=== PATIENT | male | born 1955 | race Two or more races ===

== ENCOUNTER 2021-01-04 22:31 | Emergency (ER) | payer MEDICARE, MEDICAID ==
[~2021-01-04] VITALS: Ht 172.7 cm; Wt 81.6 kg
[2021-01-04 22:34] VITALS: BP 174/101
[2021-01-04 23:13] LABS: Basophils # (auto) 0.1 10 ^3/uL (0-0.2); Basophils % (auto) 0.5 % (0.0-2.0); Eosinophils # (auto) 0.1 10 ^3/uL (0-0.8); Eosinophils % (auto) 0.8 % (0.0-7.0); Hematocrit 39.1 % (41.0-53.0); Lymphocytes # (auto) 1.5 10 ^3/uL (0.4-5.4); Lymphocytes % (auto) 12.3 % (10.0-50.0); Mean Corpuscular Hgb Conc. 33.3 g/dL (32.0-36.0); Mean Corpuscular Volume 81.1 fL (80.0-100.0); Neutrophils # (auto) 9.4 10 ^3/uL (1.6-8.6); Neutrophils % (auto) 78.4 % (37.0-80.0); Platelet Count (auto) 307 10^3/uL (140-450); Red Blood Cells 4.82 10^6/uL (4.5-5.90); Red Cell Distribution Width 15.7 % (11.8-14.3)
[2021-01-04 23:31] LABS: INR 1.03 (0.9-1.15); Partial Thromboplastin Time 26.8 sec (23.0-31.2)
[2021-01-04 23:32] LABS: Alanine Aminotransferase 21 U/L (16-61); Albumin 2.9 g/dL (3.4-5.0); Anion Gap 5 (5-15); Blood Urea Nitrogen 11 mg/dL (7-18); Calcium 8.9 mg/dL (8.5-10.1); Carbon Dioxide 28 mmol/L (21-32); Chloride 100 mmol/L (98-107); Glucose 112 mg/dL (74-106); Sodium 133 mmol/L (136-145)
[2021-01-04 23:37] LABS: Alkaline Phosphatase 110 U/L (45-117); Aspartate Aminotransferase 21 U/L (15-37); BUN/Creatinine Ratio 13.6; Bilirubin, Total 0.2 mg/dL (0.2-1.0); GFR African American 123 mL/min; GFR Non-African American 101 mL/min; Total Protein 9.4 g/dL (6.4-8.2)
== END 2021-01-05 01:41 | disposition left against medical advice (07) ==
LOC: ER 22:34
DX: L02.211 Cutaneous abscess of abdominal wall (principal); R79.89 Other specified abnormal findings of blood chemistry; J44.9 Chronic obstructive pulmonary disease, unspecified; I10 Essential (primary) hypertension; F17.210 Nicotine dependence, cigarettes, uncomplicated; F12.10 Cannabis abuse, uncomplicated; F15.10 Other stimulant abuse, uncomplicated; F19.10 Other psychoactive substance abuse, uncomplicated; Z86.73 Personal history of transient ischemic attack (TIA), and cerebral infarction without residual deficits
CPT/HCPCS: 36415; 80053; 83880; 84484; 85025; 85379; 85610; 85730; 93005

== ENCOUNTER 2021-01-13 10:48 | Emergency (ER) | payer MEDICARE, MEDICAID ==
[~2021-01-13] VITALS: Ht 170.2 cm; Wt 104.3 kg
[2021-01-13 13:20] LABS: Basophils # (auto) 0 10 ^3/uL (0-0.2); Basophils % (auto) 0.4 % (0.0-2.0); Eosinophils # (auto) 0.1 10 ^3/uL (0-0.8); Monocytes # (auto) 0.8 10 ^3/uL (0-1.3); Platelet Count (auto) 280 10^3/uL (140-450); White Blood Cell 11.5 10^3/uL (4.4-10.8)
[2021-01-13 13:22] LABS: Eosinophils % (auto) 0.7 % (0.0-7.0); Hemoglobin 11.8 g/dL (13.5-17.5); Lymphocytes # (auto) 1.4 10 ^3/uL (0.4-5.4); Lymphocytes % (auto) 11.8 % (10.0-50.0); Mean Corpuscular Hemoglobin 26.7 pg (28.0-32.0); Mean Corpuscular Hgb Conc. 32.8 g/dL (32.0-36.0); Mean Corpuscular Volume 81.4 fL (80.0-100.0); Monocytes % (auto) 6.5 % (0.0-12.0); Neutrophils # (auto) 9.3 10 ^3/uL (1.6-8.6); Neutrophils % (auto) 80.6 % (37.0-80.0); Red Blood Cells 4.41 10^6/uL (4.5-5.90); Red Cell Distribution Width 15.6 % (11.8-14.3)
[2021-01-13 13:23] LABS: Magnesium 2.3 mg/dL (1.6-2.6)
[2021-01-13 13:27] LABS: Calcium 8.5 mg/dL (8.5-10.1); Potassium 4.2 mmol/L (3.5-5.1)
[2021-01-13 13:30] LABS: BUN/Creatinine Ratio 14.5; Bilirubin, Total 0.4 mg/dL (0.2-1.0); Total Protein 8.7 g/dL (6.4-8.2)
[2021-01-13 13:35] LABS: INR 1.04 (0.9-1.15); Partial Thromboplastin Time 21.9 sec (23.0-31.2)
[2021-01-13 13:47] LABS: Urine Bacteria NONE SEEN /hpf (None Seen); Urine Blood Negative /uL (Negative); Urine Specific Gravity 1.014 (1.001-1.035); Urine WBC <1 /hpf (0 - 3)
[2021-01-13 14:15] VITALS: BP 159/87
== END 2021-01-13 14:35 | disposition left against medical advice (07) ==
LOC: ER 10:48
DX: L02.211 Cutaneous abscess of abdominal wall (principal); E44.1 Mild protein-calorie malnutrition; F11.20 Opioid dependence, uncomplicated; J44.9 Chronic obstructive pulmonary disease, unspecified; I10 Essential (primary) hypertension; F17.210 Nicotine dependence, cigarettes, uncomplicated; Z86.73 Personal history of transient ischemic attack (TIA), and cerebral infarction without residual deficits; Z68.30 Body mass index [BMI] 30.0-30.9, adult; Z20.822 Contact with and (suspected) exposure to COVID-19
CPT/HCPCS: 36415; 71046; 80053; 81001; 83605; 83690; 83735; 84443; 85025; 85610; 85730; 87040; 87426; 93005; 99285; C9803; U0003